=== PATIENT | female | born 1965 | race American Indian/Alaskan Native ===

== ENCOUNTER 2016-08-10 22:53 | Emergency (ER) | payer BC ==
[2016-08-10 23:07] VITALS: BMI 42.3
[2016-08-10 23:10] VITALS: TEMP 97.9; O2SAT 100
[2016-08-10] MEDS ORDERED: Oxycodone/Acetaminophen 5/325 mg Tab PO STA (23:19)
--- NOTE | 2016-08-10 23:22 | ED PDOC ---
Arrival/HPI <Chas Rojas - Last Filed: 08/10/16 23:25> - General Historian: Patient <Noel Munoz - Last Filed: 08/11/16 01:06> - General Chief Complaint: Lower Extremity Problem/Injury Time Seen by Provider: 08/10/16 23:18 - History of Present Illness Narrative History of Present Illness (Text): 08/10/16 23:19 50 y/o female, pmh including htn, nkda, c/o rt. foot pain x 1 day. Pt. stated that the frozen turkey dropped on the top of the rt. foot earlier during the day , been having pain the throughout the day, no pain medication taken for the past 6 hours, able to move the toes without any pain or numbness/tingling, no other medical or psychological complaints. (Noel Munoz) Past Medical History - Provider Review Nursing Documentation Reviewed: Yes - Infectious Disease Hx of Infectious Diseases: None - Tetanus Immunization Tetanus Immunization: Up to Date - Cardiac Hx Cardiac Disorders: Yes Hx Hypertension: Yes - Pulmonary Hx Respiratory Disorders: No - Neurological Hx Neurological Disorder: Yes HX Cerebrovascular Accident: Yes Hx Migraine: Yes Hx Transient Ischemic Attacks (TIA): Yes - HEENT Hx HEENT Disorder: Yes (USES GLASSES) - Renal Hx Renal Disorder: No - Endocrine/Metabolic Hx Endocrine Disorders: No - Hematological/Oncological Hx Blood Disorders: Yes Hx Cancer: Yes (stage 1 colon) - Integumentary Hx Dermatological Disorder: No - Gastrointestinal Hx Gastrointestinal Disorders: Yes Other/Comment: COLON CANCER, BOWEL DISORDER - Genitourinary/Gynecological Hx Genitourinary Disorders: No - Psychiatric Hx Psychophysiologic Disorder: No - Surgical History Hx Orthopedic Surgery: Yes (right hand) Other/Comment: MYOMECTOMY, COLECTOMY - Anesthesia Hx Anesthesia: Yes Hx Anesthesia Reactions: No Hx Malignant Hyperthermia: No - Suicidal Assessment Feels Threatened In Home Enviroment: No <Noel Munoz - Last Filed: 08/11/16 01:06> Family/Social History - Physician Review Nursing Documentation Reviewed: Yes Family/Social History: Unknown Family HX Smoking Status: Never Smoked Hx Alcohol Use: No Hx Substance Use Treatment: No <Noel Munoz - Last Filed: 08/11/16 01:06> Allergies/Home Meds <Chas Rojas - Last Filed: 08/10/16 23:25> <Noel Munoz Q - Last Filed: 08/11/16 01:06> Allergies/Adverse Reactions: Allergies coconuts Allergy (Severe, Uncoded 07/25/14 12:15) ANAPHYLAXIS string beens Allergy (Severe, Uncoded 07/25/14 12:15) ANAPHYLAXIS Home Medications: Home Meds Medication Instructions Recorded Confirmed Amlodipine Besylate [Norvasc] 10 mg PO DAILY 07/25/14 03/08/16 Diazepam 10 mg PO DAILY 07/25/14 03/08/16 Chrom Verna/Brindal Brito [Garcinia 1 tab PO DAILY 03/08/16 03/08/16 Cambogia Tablet] Coffee Extract [Green Coffee [place]] 1 tab PO DAILY 03/08/16 03/08/16 Enzymes,Digestive [Digestive 1 tab PO DAILY 03/08/16 03/08/16 Enzyme] Hydroxyzine HCl 1 tab PO BID 03/08/16 03/08/16 Ibuprofen [Motrin Tab] 1 tab PO PRN PRN 03/08/16 03/08/16 Levocetirizine Dihydrochloride 1 tab PO DAILY 03/08/16 03/08/16 Promethazine [Phenergan Tab] 1 tab PO Q4 PRN 03/08/16 03/08/16 Topiramate 1 tab PO BID 03/08/16 03/08/16 Review of Systems - Review of Systems Constitutional: absent: Fatigue, Fevers Eyes: absent: Vision Changes ENT: absent: Hearing Changes Respiratory: absent: SOB, Cough Cardiovascular: absent: Chest Pain Gastrointestinal: absent: Abdominal Pain, Nausea, Vomiting Musculoskeletal: Arthralgias. absent: Back Pain, Neck Pain, Joint Swelling, Myalgias Skin: absent: Rash, Pruritis, Skin Lesions, Laceration, Abscess, Ulcer, Cellulitis Neurological: absent: Headache, Dizziness, Focal Weakness, Gait Changes, Speech Changes, Facial Droop, Disequilibrium, Seizure <Noel Munoz - Last Filed: 08/11/16 01:06> Physical Exam Vital Signs Reviewed: Yes Temperature: Afebrile Blood Pressure: Hypertensive Pulse: Regular Respiratory Rate: Normal Appearance: Positive for: Well-Appearing, Non-Toxic, Comfortable Pain Distress: Moderate Mental Status: Positive for: Alert and Oriented X 3 - Systems Exam Head: Present: Atraumatic, Normocephalic Pupils: Present: PERRL Extroacular Muscles: Present: EOMI Conjunctiva: Present: Normal Mouth: Present: Moist Mucous Membranes Neck: Present: Normal Range of Motion Respiratory/Chest: Present: Clear to Auscultation, Good Air Exchange. No: Respiratory Distress, Accessory Muscle Use Cardiovascular: Present: Regular Rate and Rhythm, Normal S1, S2. No: Murmurs Abdomen: Present: Normal Bowel Sounds. No: Tenderness, Distention, Peritoneal Signs Back: Present: Normal Inspection Upper Extremity: Present: Normal Inspection. No: Cyanosis, Edema Lower Extremity: Present: Normal Inspection, Other (Rt. foot: +ttp on the dorsum of the 1st and 2nd metatarsal region with no swelling, skin intact, no ecchymosis, visible surgical scars noted, FROM without limitation, sensation intact, motor 5/5, +DPPT pulses, capillary refill< 2 seconds, neurovascular intact. ). No: Edema Neurological: Present: GCS=15, CN II-XII Intact, Speech Normal Skin: Present: Warm, Dry, Normal Color. No: Rashes Psychiatric: Present: Alert, Oriented x 3, Normal Insight, Normal Concentration <Noel Munoz - Last Filed: 08/11/16 01:06> Vital Signs Temp Pulse Resp BP Pulse Ox 08/10/16 23:09 97.9 F 65 20 153/72 H 100 Medical Decision Making <Chas Rojas - Last Filed: 08/10/16 23:25> - RAD Interpretation Formula Mixer: Radiologist <Noel Munoz - Last Filed: 08/11/16 01:06> ED Course and Treatment: 08/10/16 23:22 -perocet -xrays 08/11/16 00:49 -Pain decreased, xrays show no fracture or dislocation, desire tapping the 1st and 2nd toe with posterior splints, neurovascular intact, advised outpatient registration coordinator follow up. -Discharge home with mobic, posterior splint, crutches, non-weight bearing, follow up with your own pmd and registration coordinator within 2 days, obtain repeat xray or MRI follow up if the pain doesn't improved after 7 days, return to the ER for any new or worsening signs or symptoms. (Noel Munoz) - RAD Interpretation Radiology Orders: 08/10/16 23:19 FOOT RIGHT 3 VIEWS ROUTINE [RAD] Stat 08/10/16 23:24 ANKLE RIGHT 3 VIEWS ROUTINE [RAD] Stat No acute findings, no acute fractures. (Noel Munoz) - Medication Orders Current Medication Orders: Discontinued Medications Oxycodone/Acetaminophen (Percocet 5/325 Mg Tab) 1 tab PO STAT STA Stop: 08/10/16 23:20 Last Admin: 08/10/16 23:25 Dose: 1 tab - PA / SHOP COOPER / Resident Statement AZUL has reviewed & agrees with the documentation as recorded. AZUL has examined the patient and agrees with the treatment plan. <Chas Rojas - Last Filed: 08/10/16 23:25> - PA / SHOP COOPER / Resident Statement AZUL has reviewed & agrees with the documentation as recorded. AZUL has examined the patient and agrees with the treatment plan. <Noel Munoz - Last Filed: 08/11/16 01:06> Disposition/Present on Arrival <Chas Rojas - Last Filed: 08/10/16 23:25> - Present on Arrival Any Indicators Present on Arrival: No History of DVT/PE: No History of Uncontrolled Diabetes: No Urinary Catheter: No History of Decub. Ulcer: No History Surgical Site Infection Following: None - Disposition Have Diagnosis and Disposition been Completed?: Yes Disposition Time: 23:22 Patient Plan: Discharge <Noel Munoz - Last Filed: 08/11/16 01:06> - Disposition Diagnosis: Foot injury, Foot pain, Ankle pain Disposition: HOME/ ROUTINE Patient Problems: Current Active Problems Problem Status Onset Foot injury Acute Foot pain Acute Ankle pain Acute Condition: IMPROVED Additional Instructions: Discharge home with mobic, posterior splint, crutches, non-weight bearing, follow up with your own pmd and registration coordinator within 2 days, obtain repeat xray or MRI follow up if the pain doesn't improved after 7 days, return to the ER for any new or worsening signs or symptoms. Prescriptions: Meloxicam [Mobic] 15 mg PO DAILY PRN #14 tab PRN Reason: Other Referrals: Gregorio Agee DPM [Staff Provider] - Follow up with primary [facility] [place] - Follow up with primary Forms: WORK NOTE
--- NOTE | 2016-08-11 00:56 | RAD ---
EXAM: XR Right Ankle Complete, 3 or More Views CLINICAL HISTORY: 50 years old, female; Pain; Ankle; Right; Patient HX: Medial malleous swelling TECHNIQUE: Frontal, lateral and oblique views of the right ankle. COMPARISON: No relevant prior studies available. FINDINGS: Bones/joints: Unremarkable. No acute fracture. No dislocation. Soft tissues: Anterior soft tissue swelling IMPRESSION: No acute fracture
--- NOTE | 2016-08-11 00:58 | RAD ---
EXAM: XR Right Foot Complete, 3 or More Views CLINICAL HISTORY: 50 years old, female; Pain; Foot; Right; Patient HX: Rt. Foot 1st and 2nd metatarsal pain TECHNIQUE: Frontal, lateral and oblique views of the right foot. COMPARISON: No relevant prior studies available. FINDINGS: Bones/joints: No acute fracture. No dislocation. Incomplete fusion of the third and fourth metatarsal along its distal medial third. Soft tissues: No radiopaque foreign body. IMPRESSION: No acute findings, as detailed above.
[2016-08-11] MEDS ORDERED: Oxycodone/Acetaminophen 5/325 mg Tab PO STA (01:25)
[2016-08-11 01:42] VITALS: BP 145/85; PULSE 75; RESP 18
== END 2016-08-11 01:41 | disposition home or self-care (01) ==
LOC: ED 22:53
DX: S99.921A Unspecified injury of right foot, initial encounter (principal); W22.8XXA Striking against or struck by other objects, initial encounter; Y93.89 Activity, other specified; Y92.89 Other specified places as the place of occurrence of the external cause; M25.571 Pain in right ankle and joints of right foot

== ENCOUNTER 2016-08-20 11:28 | Emergency (ER) | payer BC ==
[2016-08-20 11:28] VITALS: BMI 42.3
[2016-08-20 11:42] VITALS: RESP 16; TEMP 98.1
--- NOTE | 2016-08-20 11:57 | ED PDOC ---
Arrival/HPI - General Chief Complaint: Lower Extremity Problem/Injury Time Seen by Provider: 08/20/16 11:50 Historian: Patient - History of Present Illness Narrative History of Present Illness (Text): 08/20/16 11:54 50y/o female, pmh including htn, nkda, c/o here for the follow up for the rt. foot pain. Pt. was seen by me about 10 days ago, rt. foot 1st and 2nd toe injury which the xrays of rt. foot and ankle show no fracture or dislocation, due to the level of the pain she had which I splinted with the posterior splint. She had been walking on the foot with the splint on, stated that she would like the splint to be removed, never see her own pmd nor the food or baggage handling rampman which I referred her to. Pt. came to the ER for follow up instead. Pt. has no numbness or tingling, looks much more comfortable than 10 days ago initially I seen her. Pt. has no calf pain, no chest pain or shortness of breath, no other medical or psychological complaints. Past Medical History - Provider Review Nursing Documentation Reviewed: Yes - Infectious Disease Hx of Infectious Diseases: None - Tetanus Immunization Tetanus Immunization: Up to Date - Cardiac Hx Cardiac Disorders: Yes Hx Hypertension: Yes - Pulmonary Hx Respiratory Disorders: No - Neurological Hx Neurological Disorder: Yes HX Cerebrovascular Accident: Yes Hx Migraine: Yes Hx Transient Ischemic Attacks (TIA): Yes - HEENT Hx HEENT Disorder: Yes (USES GLASSES) - Renal Hx Renal Disorder: No - Endocrine/Metabolic Hx Endocrine Disorders: No - Hematological/Oncological Hx Blood Disorders: Yes Hx Cancer: Yes (stage 1 colon) - Integumentary Hx Dermatological Disorder: No - Musculoskeletal/Rheumatological Hx Musculoskeletal Disorders: No - Gastrointestinal Hx Gastrointestinal Disorders: Yes Other/Comment: COLON CANCER, BOWEL DISORDER - Genitourinary/Gynecological Hx Genitourinary Disorders: No - Psychiatric Hx Psychophysiologic Disorder: No - Surgical History Hx Orthopedic Surgery: Yes (right hand) Other/Comment: MYOMECTOMY, COLECTOMY - Anesthesia Hx Anesthesia: Yes Hx Anesthesia Reactions: No Hx Malignant Hyperthermia: No - Suicidal Assessment Feels Threatened In Home Enviroment: No Family/Social History - Physician Review Nursing Documentation Reviewed: Yes Family/Social History: Unknown Family HX Smoking Status: Never Smoked Hx Alcohol Use: No Hx Substance Use Treatment: No Allergies/Home Meds Allergies/Adverse Reactions: Allergies coconuts Allergy (Severe, Uncoded 08/20/16 11:38) ANAPHYLAXIS string beens Allergy (Severe, Uncoded 08/20/16 11:38) ANAPHYLAXIS Home Medications: Home Meds Medication Instructions Recorded Confirmed Amlodipine Besylate [Norvasc] 10 mg PO DAILY 07/25/14 08/20/16 Hydroxyzine HCl 1 tab PO DAILY 03/08/16 08/20/16 Levocetirizine Dihydrochloride 1 tab PO DAILY 03/08/16 08/20/16 Promethazine [Phenergan Tab] 1 tab PO Q4 PRN 03/08/16 08/20/16 Topiramate 1 tab PO DAILY 03/08/16 08/20/16 Diazepam [Valium] 10 mg PO DAILY 08/20/16 08/20/16 Review of Systems - Review of Systems Constitutional: absent: Fatigue, Fevers Eyes: absent: Vision Changes ENT: absent: Hearing Changes Respiratory: absent: SOB, Cough Cardiovascular: absent: Chest Pain Gastrointestinal: absent: Abdominal Pain, Nausea, Vomiting Musculoskeletal: Arthralgias. absent: Back Pain, Neck Pain, Joint Swelling, Myalgias Skin: absent: Rash, Pruritis, Skin Lesions, Laceration, Abscess, Ulcer Neurological: absent: Headache, Dizziness, Focal Weakness Physical Exam Vital Signs Reviewed: Yes Vital Signs Temp Pulse Resp BP Pulse Ox 08/20/16 11:38 98.1 F 60 16 168/89 H 100 Temperature: Afebrile Blood Pressure: Hypertensive Pulse: Regular Respiratory Rate: Normal Appearance: Positive for: Well-Appearing, Non-Toxic, Comfortable Mental Status: Positive for: Alert and Oriented X 3 - Systems Exam Head: Present: Atraumatic, Normocephalic Pupils: Present: PERRL Extroacular Muscles: Present: EOMI Conjunctiva: Present: Normal Mouth: Present: Moist Mucous Membranes Neck: Present: Normal Range of Motion Respiratory/Chest: Present: Clear to Auscultation, Good Air Exchange. No: Respiratory Distress, Accessory Muscle Use Cardiovascular: Present: Regular Rate and Rhythm, Normal S1, S2. No: Murmurs Abdomen: Present: Normal Bowel Sounds. No: Tenderness, Distention, Peritoneal Signs Back: Present: Normal Inspection Upper Extremity: Present: Normal Inspection. No: Cyanosis, Edema Lower Extremity: Present: Normal Inspection, Other (Rt. lower extremity: visible posterior splint which I visualized then I removed, no tenderness or swelling, FROM without limitation, sensation intact, motor 5/5, +DPPT pulses, capillary refill< 2 seconds,neurovascular intact. ). No: Edema Neurological: Present: GCS=15, CN II-XII Intact, Speech Normal Skin: Present: Warm, Dry, Normal Color. No: Rashes Psychiatric: Present: Alert, Oriented x 3, Normal Insight, Normal Concentration Medical Decision Making ED Course and Treatment: 08/20/16 11:58 -rt. foot xray repeat -observe and reassess 08/20/16 12:12 -Pt. refused repeat test as she was seen here 10 days ago with negative test, stated that she didn't have any sexual activities for the past 2 weeks, request narcotic for pain medication including percocet which I explained to her that this medication is class C (meaning of class C explained to the patient as well) which it will causes harm to the patient if she is . Pt. insisted percocet for pain and wants to take the risk despite I explained to her. -I reviewed the [facility] report which there is no visible narcotics prescribed to her for the past 6 months. 08/20/16 13:13 -splint removed, xray repeated show no fracture. -Pt. request stronger pain killer for the pain, didn't fill the meloxicam on last visit. I will add percocet for her with food or baggage handling rampman follow up. -Discharge home with percocet, fill your meloxicam from last visit, follow up with your own pmd and food or baggage handling rampman within 2 days, return to the ER for any new or worsening signs or symptoms. - RAD Interpretation Radiology Orders: 08/20/16 11:53 FOOT RIGHT 3 VIEWS ROUTINE [RAD] Stat no acute fracture Agronomy Instructor: Radiologist - PA / L[employer] [place] / Resident Statement MD/DO has reviewed & agrees with the documentation as recorded. Disposition/Present on Arrival - Present on Arrival Any Indicators Present on Arrival: No History of DVT/PE: No History of Uncontrolled Diabetes: No Urinary Catheter: No History of Decub. Ulcer: No History Surgical Site Infection Following: None - Disposition Have Diagnosis and Disposition been Completed?: Yes Diagnosis: Foot pain, Osteochondroma Disposition: HOME/ ROUTINE Disposition Time: 11:58 Patient Plan: Discharge Condition: GOOD Additional Instructions: Discharge home with percocet, fill your meloxicam from last visit, follow up with your own pmd and food or baggage handling rampman within 2 days, return to the ER for any new or worsening signs or symptoms. Prescriptions: oxyCODONE/Acetaminophen [Percocet 5/325 mg Tab] 1 tab PO QID PRN #8 tab PRN Reason: Other Referrals: Dnog Curiel, [Primary Care Provider] - Follow up with primary Gregorio Agee DPM [Staff Provider] - Follow up with primary Forms: WORK NOTE
--- NOTE | 2016-08-20 13:03 | RAD ---
PROCEDURE: Right Foot Radiographs. HISTORY: rt. foot 1st and 2nd toe pain x 10 days COMPARISON: 08/10/2016 FINDINGS: BONES: Examination limited due to overlying fiberglass splint. No fracture identified. There is a bony excrescence arising from the distal aspect of the 3rd and 4th metatarsals, the 3rd extending laterally and 4th extending medially, with a linear lucency the 2 excrescences. These could represent osteochondromas. Alternatively, this may represent dystrophic calcification from prior insult. . They are unchanged compared to the prior examination. JOINTS: Normal. SOFT TISSUES: Normal. OTHER FINDINGS: None. IMPRESSION: No acute fracture. Examination limited by fiberglass splint. Possible osteochondromas of the 3rd and 4th metatarsals as described.
[2016-08-20] MEDS ORDERED: Oxycodone/Acetaminophen 5/325 mg Tab PO STA (13:12)
[2016-08-20 14:23] VITALS: BP 152/94; PULSE 65; O2SAT 98
== END 2016-08-20 13:50 | disposition home or self-care (01) ==
LOC: ED 11:28
DX: M79.671 Pain in right foot (principal); D16.9 Benign neoplasm of bone and articular cartilage, unspecified; I10 Essential (primary) hypertension